=== PATIENT | male | born 1960 | race African-American/Black ===

== ENCOUNTER 2016-08-02 13:14 | Inpatient (IN) | payer OTHER ==
[~2016-08-02] VITALS: Ht 182.9 cm; Wt 100.0 kg
[2016-08-02] VITALS (16 sets, daily range): BP systolic 106–196; BP diastolic 60–110; PULSE 44–64; RESP 15–20; TEMP 97.7–98.5; O2SAT 92–100
[2016-08-02] MEDS ORDERED: TAMS0.4C4 PO (13:45)
[2016-08-02] MEDS ORDERED: OXYB5TAB10 PO (13:46)
--- NOTE | 2016-08-02 13:51 | PD ---
HPI Chief Complaint: Chest Pain Time Seen by Provider: 13:49 Travel History International Travel<30 days: No Contact w/Intl Traveler<30days: No Traveled to known affect area: No History of Present Illness HPI Patient comes in complaining of substernal chest pain described as a sharp heaviness ongoing for 2 days. Patient states he tried taking Tums and Pepto- Bismol thinking it may be gas with no improvement of his symptoms. Patient states his pain is getting worse. Patient states he had a heart attack in 2010 and had a catheter at that time however is uncertain if they put a stent in or not. Patient reports this was done in [place]. Patient states he had a stress test approximately year ago in [place] and was told everything was fine per patient. Patient denies any shortness of breath with this, numbness or tingling, vomiting, diaphoresis, back pain, or abdominal pain. Patient reports occasionally having some nausea with this along with some dizziness. PFSH Past Medical History Asthma: Yes Cardiovascular Problems: Yes High Cholesterol: Yes Tetanus Vaccination: > 5 Years Influenza Vaccination: Yes Social History Alcohol Use: Yes (occu) Tobacco Use: Yes (1 ppd) Substance Use: No Allergies-Medications (Allergen,Severity, Reaction): Coded Allergies: No Known Allergies (Unverified , 09/30/14) Reported Meds & Prescriptions Reported Meds & Active Scripts Active Reported Ditropan (Oxybutynin Chloride) 5 Mg Tab 5 Mg PO DAILY Tamsulosin (Tamsulosin HCl) 0.4 Mg Cap 0.4 Mg PO HS Review of Systems Except as stated in HPI: all other systems reviewed are Neg Physical Exam Narrative GENERAL: Well-developed, overly nourished, in no acute distress, and non-ill appearing. SKIN: Focused skin assessment warm and dry. HEAD: Atraumatic. Normocephalic. EYES: Pupils equal and round. EOMI. No scleral icterus. No injection or drainage. ENT: No nasal bleeding or discharge. Mucous membranes pink and moist. NECK: Trachea midline. No JVD. Supple. No nuclear rigidity. CARDIOVASCULAR: Regular rate and rhythm. No murmur appreciated. RESPIRATORY: No accessory muscle use. No respiratory distress. Clear to auscultation. Breath sounds equal bilaterally. MUSCULOSKELETAL: No obvious deformities. No clubbing. No cyanosis. No edema. Full range of motion. NEUROLOGICAL: Awake and alert. No obvious cranial nerve deficits. Motor grossly within normal limits. Normal speech. PSYCHIATRIC: Appropriate mood and affect; insight and judgment normal. Data Data Last Documented VS Vital Signs Date Time Temp Pulse Resp B/P Pulse Ox O2 Delivery O2 Flow Rate FiO2 08/02/16 13:38 56 16 161/97 98 Room Air 08/02/16 13:17 97.7 Orders Electrocardiogram (08/02/16 ) Basic Metabolic Panel (Bmp) (08/02/16 13:48) Ckmb (Isoenzyme) Profile (08/02/16 13:48) Complete Blood Count With Diff (08/02/16 13:48) Magnesium (Mg) (08/02/16 13:48) Prothrombin Time / Inr (Pt) (08/02/16 13:48) Act Partial Throm Time (Ptt) (08/02/16 13:48) Troponin I (08/02/16 13:48) Chest, Single Ap (08/02/16 13:48) Ecg Monitoring (08/02/16 13:48) Bilateral Bp Monitoring (08/02/16 13:48) Iv Access Insert/Monitor (08/02/16 13:48) Oximetry (08/02/16 13:48) Oxygen Administration (08/02/16 13:48) Aspirin Chew (Aspirin Chew) (08/02/16 14:00) Nitroglycerin 2% Oint (Nitroglycerin 2% (08/02/16 14:00) Sodium Chloride 0.9% Flush (Ns Flush) (08/02/16 14:00) Heparin Infusion CAESAR.Q1H (08/02/16 14:13) Heparin Inj (Heparin Inj) (08/02/16 20:15) Heparin Inj (Heparin Inj) (08/02/16 20:15) Heparin-D5w Inj (Heparin-D5w Inj) (08/02/16 14:15) Act Partial Throm Time (Ptt) (08/02/16 14:13) Prothrombin Time / Inr (Pt) (08/02/16 14:13) Cbc No Diff, Includes Plts (08/02/16 14:13) Cbc No Diff, Includes Plts (08/05/16 06:00) Act Partial Throm Time (Ptt) (08/02/16 21:13) Occult Blood (Hemoccult) Stool (08/02/16 14:13) Consult Cardiology (08/02/16 ) Admit Order (Ed Use Only) (08/02/16 14:22) CKMB (08/02/16 14:06) CKMB% (08/02/16 14:06) Labs Laboratory Tests Test 08/02/16 08/02/16 14:06 14:15 Sodium Level 139 MEQ/L Potassium Level 4.1 MEQ/L Chloride Level 104 MEQ/L Carbon Dioxide Level 28.1 MEQ/L Anion Gap 7 MEQ/L Blood Urea Nitrogen 17 MG/DL Creatinine 1.38 MG/DL Estimat Glomerular Filtration 65 ML/MIN Rate Random Glucose 98 MG/DL Calcium Level 9.4 MG/DL Magnesium Level 2.1 MG/DL Total Creatine Kinase 191 U/L Creatine Kinase MB 1.5 NG/ML Troponin I LESS THAN 0.02 NG/ML White Blood Count 5.6 TH/MM3 Red Blood Count 4.63 MIL/MM3 Hemoglobin 15.1 GM/DL Hematocrit 43.5 % Mean Corpuscular Volume 93.9 FL Mean Corpuscular Hemoglobin 32.5 PG Mean Corpuscular Hemoglobin 34.6 % Concent Red Cell Distribution Width 12.8 % Platelet Count 165 TH/MM3 Mean Platelet Volume 10.1 FL Neutrophils (%) (Auto) 56.0 % Lymphocytes (%) (Auto) 34.6 % Monocytes (%) (Auto) 7.2 % Eosinophils (%) (Auto) 1.5 % Basophils (%) (Auto) 0.7 % Neutrophils # (Auto) 3.1 TH/MM3 Lymphocytes # (Auto) 1.9 TH/MM3 Monocytes # (Auto) 0.4 TH/MM3 Eosinophils # (Auto) 0.1 TH/MM3 Basophils # (Auto) 0.0 TH/MM3 CBC Comment DIFF FINAL Differential Comment Prothrombin Time 10.7 SEC Prothromb Time International 1.0 RATIO Ratio Activated Partial 28.8 SEC Thromboplast Time MDM Medical Decision Making Medical Screen Exam Complete: Yes Emergency Medical Condition: Yes Interpretation(s) EKG reviewed by Dr. Whyte, which shows some ST changes with a ventricular rate of 57. Chest x-ray read by the radiologist shows: Trace left base atelectasis. Differential Diagnosis Acute coronary syndrome, angina, pneumonia, electrolyte abnormality, other Narrative Course Patient was seen and examined. IV was established. Patient given a dose of aspirin. Initial laboratory studies were ordered. EKG was obtained. After abnormal EKG Dr. Whyte spoke with Dr. Garnett who is managing patient to the Administrative Underwriter today. Patient was then admitted to the residents. Dr. Whyte discussed plan of care and disposition with patient is agreeable for admission. All questions were answered. Physician Communication Physician Communication 1412 Dr. Whyte discussed patient with Dr. Garnett result shows no STEMI but once patient started on heparin drip and will take him to the catheter lab later today. Requesting admission to medicine. 1420 discussed patient with residents online marketing strategist for agreeable to admit the patient for Dr. Fernandes. Diagnosis Primary Impression: Unstable angina Admitting Information Admitting Physician Requests: Admit Condition: Jeovanny Rivas Aug 02, 2016 13:51
[2016-08-02] MEDS ORDERED: SODIUM CHLORIDE 0.9% FLUSH 10 ML FLUSH IVF PRN (14:00)
[2016-08-02] MEDS ORDERED: ASPIRIN 81 MG CHEW TAB PO ONE (14:00)
[2016-08-02] MEDS ORDERED: NITROGLYCERIN 2% OINT 1 GM PACKET TOP ONE (14:00)
[2016-08-02] MEDS ORDERED: HEPARIN-D5W INJ 250 ML IV SCH (14:15)
--- NOTE | 2016-08-02 14:25 | RADRPT ---
EXAM DATE/TIME: 08/02/2016 13:51 [facility] COMPARISON: No previous studies available for comparison. INDICATIONS : Chest pain since wednesday. MEDICAL HISTORY : None. SURGICAL HISTORY : None. ENCOUNTER: Initial ACUITY: 3 days PAIN SCORE: 5/10 LOCATION: Bilateral chest FINDINGS: Trace left base atelectasis. Right lung clear. No pleural effusion or pneumothorax seen. Normal heart size. CONCLUSION: Trace left base atelectasis. Jn Gonzalez MD on August 02, 2016 at 14:22 Board Certified Radiologist. This report was verified electronically.
[2016-08-02 14:29] LABS: AUTOMATED NEUTROPHIL # 3.1 TH/MM3 (1.8-7.7); BASOPHIL % 0.7 % (0.0-2.0); EOSINOPHIL # 0.1 TH/MM3 (0-0.4); EOSINOPHIL % 1.5 % (0.0-4.0); HEMATOCRIT 43.5 % (39.0-51.0); HEMO FLAGS DIFF FINAL; LYMPH % 34.6 % (9.0-44.0); LYMPHOCYTE # 1.9 TH/MM3 (1.0-4.8); MEAN CELL VOLUME 93.9 FL (80.0-100.0); MEAN CORPUSCULAR HEMOGLOBIN 32.5 PG (27.0-34.0); MEAN CORPUSCULAR HGB CONC 34.6 % (32.0-36.0); MONO % 7.2 % (0.0-8.0); PLATELET COUNT 165 TH/MM3 (150-450); RED BLOOD COUNT 4.63 MIL/MM3 (4.50-5.90); RED CELL DISTRIBUTION WIDTH 12.8 % (11.6-17.2); WHITE BLOOD COUNT 5.6 TH/MM3 (4.0-11.0)
[2016-08-02] MEDS ORDERED: DOCUSATE SODIUM 100 MG CAP PO PRN (14:30)
[2016-08-02] MEDS ORDERED: ONDANSETRON HCL 4 MG/2 ML VIAL IV PRN (14:30)
[2016-08-02] MEDS: SODIUM CHLORIDE 0.9% FLUSH 10 ML FLUSH IV FLUSH SCH ×2 (14:30→21:04)
[2016-08-02] MEDS ORDERED: ACETAMINOPHEN 325 MG TAB PO PRN (14:30)
[2016-08-02] MEDS ORDERED: SODIUM CHLORIDE 0.9% FLUSH 10 ML FLUSH IV FLUSH PRN (14:30)
[2016-08-02] MEDS ORDERED: MORPHINE SULFATE 4 MG/ML INJ IV PRN (14:30)
[2016-08-02] MEDS ORDERED: NITROGLYCERIN 0.4 MG SL 25 TABS/BTL SL PRN (14:30)
[2016-08-02 14:35] LABS: ANION GAP 7 MEQ/L (5-15); BICARBONATE 28.1 MEQ/L (21.0-32.0); BLOOD UREA NITROGEN 17 MG/DL (7-18); CHLORIDE 104 MEQ/L (98-107); GLOMERULAR FILTRATION RATE 65 ML/MIN (>89); MAGNESIUM 2.1 MG/DL (1.5-2.5); POTASSIUM 4.1 MEQ/L (3.5-5.1); SODIUM (NA) 139 MEQ/L (136-145)
[2016-08-02 14:39] LABS: CREATINE KINASE 191 U/L (39-308)
[2016-08-02 14:40] LABS: APTT (PATIENT) 28.8 SEC (24.3-30.1); PROTHROMBIN TIME - PATIENT 10.7 SEC (9.8-11.6)
--- NOTE | 2016-08-02 14:43 | HHI.HP ---
[facility] Service Family Medicine Primary Care Physician Tien Driver MD Admission Diagnosis unstable angina Diagnoses: International Travel<30 Days: No Contact w/Intl Traveler<30days: No Known Affected Area: No History of Present Illness Mr. Watts is a 56 y/o M with a PMHx of BPH presents with chest pain. He states that since 07/31/16, he has had constant substernal, chest pain radiating up his neck. He describes this pain as a "tight pressure." The pain started at rest and has continued since Wednesday. This morning he noticed that the pain was worse with some dizziness. He tried Pepto-Bismol and Tums thinking the pain was related to reflux, however his pain was not relieved and he decided to present to the emergency department for further evaluation. Currently his pain is at a 5 /10 with radiation up his neck with mild nausea. He has a history of heart related issues and was catheterized in 2010, but is unsure whether or not stents were placed. He currently sees a cartridge loader in the [place] area, but does not know the physician's name. He has completed a stress test within the year and was told that "everything was normal." He reports no known cardiac medications, however his reports that he does take a "pink pill and small white pill" that could be cardiac medications. Otherwise he has no complaints and denies any fevers, chills, shortness of breath, abdominal pain, and calf tenderness. He reports his last meal was this morning at approximately 0900. ( Barney Parson MD R1) Review of Systems Constitutional: DENIES: Fever, Chills Eyes: DENIES: Blurred vision Ears, nose, mouth, throat: DENIES: Hearing loss Respiratory: DENIES: Cough, Shortness of breath Cardiovascular: COMPLAINS OF: Chest pain, DENIES: Palpitations, Lower Extremity Edema Gastrointestinal: DENIES: Abdominal pain, Diarrhea, Nausea, Vomiting Genitourinary: DENIES: Dysuria Musculoskeletal: DENIES: Joint pain Integumentary: DENIES: Rash Hematologic/lymphatic: DENIES: Lymphadenopathy Neurologic: DENIES: Headache Psychiatric: DENIES: Mood changes (Barney Parson MD R1) Past Family Social History Past Medical History Asthma Allergies BPH Past Surgical History Heart catheterization in 2010 (Barney Parson MD R1) Allergies: Coded Allergies: No Known Allergies (Unverified , 09/30/14) Family History Mother - Healthy Father - Healthy Grandfather - heart problems Reports no other FMHx Social History Patient is from [place]. 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 Smoke - 1 pack per day for 47 years Alcohol - last drink was 4 weeks ago, stopped due to medication, prior history of heavy drinking Illicit - Denies illicit drug history (Barney Parson MD R1) Physical Exam Vital Signs Vital Signs Date Time Temp Pulse Resp B/P Pulse Ox O2 Delivery O2 Flow Rate FiO2 08/02/16 13:38 56 16 161/97 98 Room Air 08/02/16 13:17 97.7 52 15 179/96 100 Physical Exam GENERAL: 56-year-old male lying in bed in mild distress with chest pain at 5/10. SKIN: Warm and dry. No rash. HEENT: Atraumatic, normocephalic with EOMI. PERRLA. No scleral icterus. Oropharynx clear with no erythema or exudate. MMM. No rhinorrhea. No LAD or JVD appreciated. CARDIOVASCULAR: Regular rate and rhythm without obvious murmurs, gallops, or rubs. 2+ pulses in all extremities. RESPIRATORY: Clear to auscultation bilaterally with no CRW. No increased work of breathing. GASTROINTESTINAL: Abdomen soft, non-tender, nondistended with positive bowel sounds. No masses or hepatosplenomegaly appreciated. MUSCULOSKELETAL: No cyanosis or edema. Strength grossly WNL. BACK: Nontender without obvious deformity. No CVA tenderness. NEURO/PSYCH: Afocal. Awake, alert, and oriented x3. No gross abnormalities. Normal speech and interaction with examiner. Laboratory Laboratory Tests Test 08/02/16 08/02/16 14:06 14:15 Sodium Level 139 Potassium Level 4.1 Chloride Level 104 Carbon Dioxide Level 28.1 Anion Gap 7 Blood Urea Nitrogen 17 Creatinine 1.38 Estimat Glomerular Filtration 65 Rate Random Glucose 98 Calcium Level 9.4 Magnesium Level 2.1 Total Creatine Kinase 191 Troponin I LESS THAN 0.02 White Blood Count 5.6 Red Blood Count 4.63 Hemoglobin 15.1 Hematocrit 43.5 Mean Corpuscular Volume 93.9 Mean Corpuscular Hemoglobin 32.5 Mean Corpuscular Hemoglobin 34.6 Concent Red Cell Distribution Width 12.8 Platelet Count 165 Mean Platelet Volume 10.1 Neutrophils (%) (Auto) 56.0 Lymphocytes (%) (Auto) 34.6 Monocytes (%) (Auto) 7.2 Eosinophils (%) (Auto) 1.5 Basophils (%) (Auto) 0.7 Neutrophils # (Auto) 3.1 Lymphocytes # (Auto) 1.9 Monocytes # (Auto) 0.4 Eosinophils # (Auto) 0.1 Basophils # (Auto) 0.0 CBC Comment DIFF FINAL Differential Comment Prothrombin Time 10.7 Prothromb Time International 1.0 Ratio Activated Partial 28.8 Thromboplast Time (Barney Parson MD R1) Result Diagram: 08/02/16 1415 08/02/16 1406 Imaging Last 72 hours Impressions Chest X-Ray 08/02/16 1348 Signed Impressions: Service Date/Time: Tuesday, August 02, 2016 13:51 - CONCLUSION: Trace left base atelectasis. Jn Gonzalez MD (Barney Parson MD R1) Assessment and Plan Assessment and Plan Mr. Watts is a 56 y/o M with a PMHx of BPH presents with chest pain likely due to unstable angina. Patient will be admitted and taken to for heart catheterization by Dr. Garnett, per ER staff. Code Status FULL Discussed Condition With Jose Allen, ELYSE PA Dr. Dom Schreiber (Barney Parson MD R1) Attending Attestation Patient seen and examined. Case reviewed and discussed with the resident team. Agree with plan of care as discussed with me and documented in the resident note. (Marion Fernandes MD) Problem List: (1) Unstable angina Status: Acute Plan: Patient presenting with 3 days of unstable angina. Chest x-ray: Trace left base atelectasis EKG: Bradycardic in normal sinus rhythm with nonspecific ST changes per medical team read. CBC: Within normal limits BMP: Creatinine 1.38 Troponin less than 0.02, trend every 6 hours 2 with EKG Lipid panel: Pending BNP: Pending TSH: Pending Consult cardiology, pressure recommendations Per ER staff, cardiology plans to take patient for cardiac catheterization later this afternoon Cardiac telemetry Pulse oximetry with nasal cannula when necessary Medications: Heparin drip per protocol initiated in ER Atorvastatin 40 mg daily at bedtime Aspirin daily Nitroglycerin 0.4 mg sublingual every 5 minutes when necessary chest pain Morphine 2 mg every 30 minutes when necessary for chest pain (2) BPH (benign prostatic hyperplasia) Status: Acute Plan: Patient with reported BPH. -Continue home Oxybutynin and Tamsulosin (3) Nutrition, metabolism, and development symptoms Status: Acute Plan: Diet: NPO for catheterization, heart healthy post-procedure as tolerated Fluids: Tolerating PO fluids prior to presentation, does not appear dehydrated Electrolytes: WNL, continue to monitor Prophylaxis: Zofran when necessary for nausea or vomiting, Anastacia-Colace when necessary for constipation, Tylenol when necessary for headache or fever, DuoNeb 's when necessary for shortness of breath or wheezing, clotting when necessary for BP greater than 180/100 (4) No contraindication to deep vein thrombosis (DVT) prophylaxis Status: Acute Plan: -Heparin drip order in preparation for catheterization procedure. -CHARLIE/SCDS (Barney Parson MD R1) Physician Certification 2 Midnight Certification Type: Admission for Inpatient Services Order for Inpatient Services The services are ordered in accordance with Medicare regulations or non- Medicare payer requirements, as applicable. In the case of services not specified as inpatient-only, they are appropriately provided as inpatient services in accordance with the 2-midnight benchmark. Estimated LOS (days): 3 3 days is the estimated time the patient will need to remain in the hospital, assuming treatment plan goals are met and no additional complications. Post-Hospital Plan: Home (Barney Parson MD R1) Barney Parson MD R1 Aug 02, 2016 14:43 Marion Fernandes MD Aug 03, 2016 11:44
[2016-08-02 14:51] LABS: CKMB 1.5 NG/ML (0.5-3.6)
[2016-08-02] MEDS ORDERED: HEPARIN-NS/PF INJ 500 ML ONE (14:56)
[2016-08-02] MEDS ORDERED: IOHEXOL 350 MG/ML 100 ML BTL (for Cath Lab) OTHER ONE (15:16)
[2016-08-02] MEDS ORDERED: MIDAZOLAM HCL 5 MG/5 ML VIAL ONE (15:24)
[2016-08-02] MEDS ORDERED: HEPARIN SODIUM - IV 10,000 UNITS/10 ML VIAL ONE (15:26)
[2016-08-02] MEDS ORDERED: VERAPAMIL HCL 5 MG/2 ML VIAL ONE (15:26)
--- NOTE | 2016-08-02 15:34 | HHI.FPPN ---
Subjective Remarks Patient was seen, examined and discussed with the medicine team. This is a 56-year-old male from [place] who presented this morning with central chest pain. It started on Wednesday and he thought was indigestion, tried Tums and Pepto-Bismol without much relief. Because the discomfort persisted, he presented to the emergency department. The pain in his central chest area does go to his neck but otherwise it's fairly constant, 5 of 10. He did not have any shortness of breath with this, did not sweat, did not have arm or jaw pain. Reports having had a heart catheter in 2010 in [place], uncertain if he had stents placed. He has a local doctor in the [facility] and a section hand helper as well. Continues to smoke a pack a day and was a heavy alcohol drinker until approximately 4 weeks ago. He takes oxybutynin and tamsulosin. He and report a small pink pill and a small white pill but they do not know what they are for. Please see history and physical examination for additional historical details including past, family, social history and review of systems. He understands that he is going to have heart catheterization today. Objective Vitals Vital Signs Date Time Temp Pulse Resp B/P Pulse Ox O2 Delivery O2 Flow Rate FiO2 08/02/16 15:16 54 159/110 08/02/16 14:53 100 2 08/02/16 14:53 61 16 182/104 98 Nasal Cannula 2 08/02/16 14:53 64 16 196/105 96 Nasal Cannula 08/02/16 13:38 56 16 161/97 98 Room Air 08/02/16 13:35 55 18 161/97 08/02/16 13:17 97.7 52 15 179/96 100 Result Diagram: 08/02/16 1415 08/02/16 1406 Other Results EKG shows ST elevation in V2. Laboratory Tests Test 08/02/16 14:06 Creatinine 1.38 MG/DL Estimat Glomerular Filtration 65 ML/MIN Rate Troponin I LESS THAN 0.02 NG/ML Imaging Last Impressions Chest X-Ray 08/02/16 1348 Signed Impressions: Service Date/Time: Tuesday, August 02, 2016 13:51 - CONCLUSION: Trace left base atelectasis. Jn Gonzalez MD Objective Remarks O. CONSTITUTIONAL/GEN: normally nourished, in some distress with central chest pain 5 out of 10. EYES: conjunctiva normal, PERRLA, EOMI. sclerae are muddy ENT: Mouth and pharynx normal. NECK: Nontender, supple LUNGS: clear A-P, respiratory effort is normal. CARDIOVASCULAR: RR without murmur or gallop. No significant edema. GI/ABD: soft without masses, without organomegaly. Active bowel sounds : no CVA tenderness NEURO: No focal deficits. SKIN: color normal, no rashes noted. HEME/LYMPH: no bruising, petechia or significant adenopathy MUSC: back is normal in appearance. Extremities are normal in appearance. PSYCH/MENTAL STATUS: Alert and oriented x 3. A/P Assessment and Plan 56-year-old male with chest pain, history of heart catheter 6 years ago, unknown whether he had stents, smoker and recent heavy drinker. Attending Attestation Patient seen and examined. Case reviewed and discussed with the resident team. Agree with plan of care as discussed with me and documented in the resident note. Marion Fernandes MD Aug 02, 2016 15:34
--- NOTE | 2016-08-02 17:48 | MB ---
cc: CHRISTOPHER LOMELI DATE OF CONSULTATION: 08/02/2016. REASON FOR CONSULTATION: Chest pain. HISTORY OF PRESENT ILLNESS: 56-year-old male with a past medical history significant for coronary artery disease who presented to the hospital with chest pain for the last two days that has been getting worse. He reports he was recently in [place] where he had an episode of faintness. He passed out. He is also complaining of chest pain. He actually went to the hospital. He was seen in [place] and he was evaluated by cardiology; however, he is not able to remember what exactly what kind of workup they did in [place]. He does state that he had a stress test a long time ago which was unremarkable. Unfortunately the patient is a poor historian and does not remember the details of his past medical history. He complains of substernal chest pressure that is ongoing and associated with belching. EKG in the emergency department shows a normal sinus rhythm with nonspecific S-T changes. First set of cardiac markers negative. He denies fevers, chills, nausea, vomiting, diarrhea, shortness of breath or bleeding issues. REVIEW OF SYSTEMS: Negative except for that mentioned in the history of present illness. PAST MEDICAL HISTORY: 1. Asthma. 2. Coronary artery disease. 3. Hyperlipidemia. 4. Hypertension. SOCIAL HISTORY: Smoker. He does not use illicit drugs. He occasionally drinks alcohol. ALLERGIES: NO KNOWN DRUG ALLERGIES. CARDIAC MEDICATIONS AT HOME: None. PHYSICAL EXAMINATION: VITAL SIGNS: Temperature 97, pulse 56, blood pressure 179/96, 02 saturation 100 % on room air. GENERAL: He is awake, alert and oriented times three in no acute distress. HEAD, EYES, EARS, NOSE, THROAT/NECK: The patient has no jugular venous distention. No carotid bruits. HEART: Regular rate and rhythm. There are no murmurs, rubs or gallops. LUNGS: Clear to auscultation bilaterally. No wheezing. No rales. No rhonchi. ABDOMEN: The abdomen is soft, nontender and nondistended with positive bowel sounds. EXTREMITIES: There is no cyanosis or edema. Pulses bounding throughout. DATA: CBC: Hemoglobin 15, hematocrit 43, platelet count 165,000. INR 1. Chemistries: Sodium 139, potassium 4.1, BUN 17, creatinine 1.3. First set of cardiac enzymes: Troponin less than 0.02. Chest x-ray shows no acute cardiopulmonary process. EKG shows normal sinus rhythm with nonspecific S-T changes. ASSESSMENT AND PLAN: 56-year-old male with cardiac risk factors that include hypertension, active smoker who presented with ongoing chest discomfort with exertion for the last two days concerning for unstable angina. He remains afebrile and hemodynamically stable, however he still has ongoing chest pressure. In the emergency department he was given oxygen, nitroglycerin and heparin. He was started on heparin drip. I think at this point given the patient's ongoing chest discomfort, we should take him to the slab conditioner supervisor to assess his coronary anatomy. The risks and benefits of left heart cath / percutaneous coronary intervention including but not limited to bleeding, infection, acute kidney injury, neurovascular trauma, emergent bypass surgery and have been explained to the patient. The patient understands the risks and is willing to proceed. Thank you for the opportunity to take part in the care of this patient Further therapy to be determined. MD NATASHA Paez/JCC /3:05 PM /5:43 PM ALLAN
--- NOTE | 2016-08-02 18:14 | MA ---
cc: CHRISTOPHER LOMELI DATE: 08/02/2016. PROCEDURE PERFORMED: 1. Left heart catheterization. 2. Selective right and left coronary angiography. 3. Left ventriculogram. INDICATIONS FOR THE PROCEDURE: Angina. Unstable angina. DESCRIPTION OF THE PROCEDURE: Consent signed. The patient was taken to the cardiac medical laboratory assistant in a fasting state. The right wrist was prepped and draped in a sterile fashion. Using 1% lidocaine for local anesthesia and a micropuncture kit, a 6-Solomon Islander sheath was inserted into the right radial artery. Antispasmodic cocktail given and then selective right and left coronary angiography was performed with a JR-4 and a JL -3.5 diagnostic catheters. Angiography was taken in multiple views. The left ventricle was crossed with a JR-4 diagnostic catheter over a wire introduced followed by pressure recordings, left ventriculography and pullback. All catheters were exchanged over the wire. The patient tolerated the procedure without complications. Estimated blood loss was less than 30 mL. Total contrast used 70 mL. The right wrist access site was closed with a TR band. RESULTS: Left ventricle: The left ventricular pressure was 133/12 with an left ventricular end diastolic pressure of 7. The aortic pressure was 134/82 with a mean of 106. Left ventriculography revealed a symmetrically debbie ventricle with an estimated ejection fraction of 60%. ANGIOGRAPHY: 1. Right coronary artery: The right coronary artery is dominant, tortuous with HAI III flow and no obstructive coronary artery disease. The posterior descending artery is patent with no blockages. There is a PLV branch that has a 40% lesion distally. 2. Left main is patent with HAI III flow. 3. left anterior descending is a transapical vessel and has minimal luminal irregularities throughout. It has a first diagonal of a prominent size. This diagonal bifurcates distally. It has minimal irregularities however, no significant obstructive lesions 4. The left circumflex artery is mainly a prominent OM1 vessel that has minimal irregularities and 20% lesion proximally and also several side branches which are small and there is also a small AV groove segment of the left circumflex. CONCLUSIONS: 1. Nonobstructive coronary artery disease. 2. Preserved left ventricular systolic function. 3. Normal diastolic function. RECOMMENDATIONS: Continue aggressive medical management for primary prevention of coronary artery disease. MD NATASHA Paez/TITI /3:49 PM /6:11 PM [facility]
[2016-08-02] MEDS ORDERED: RESP: ALBUTEROL 2.5 MG/IPRATROPIUM 0.5 MG NEB (PRN) NEB (18:45)
[2016-08-02] MEDS ORDERED: cloNIDine HCL 0.1 MG TAB PO PRN (18:45)
[2016-08-02] MEDS ORDERED: HEPARIN SODIUM - IV 10,000 UNITS/10 ML VIAL IV PRN ×2 (20:15)
[2016-08-02] MEDS ORDERED: TAMSULOSIN HCL 0.4 MG CAP PO SCH (21:00)
[2016-08-02] MEDS ORDERED: ATORVASTATIN 40 MG TAB PO SCH (21:00)
[2016-08-02 21:50] LABS: APTT (PATIENT) 29.8 SEC (24.3-30.1)
[2016-08-02 21:57] LABS: ALT (GPT) 23 U/L (12-78); AST (GOT) 11 U/L (15-37)
[2016-08-02 22:06] LABS: ALKALINE PHOSPHATASE 68 U/L (45-117); CREATINE KINASE 145 U/L (39-308); INDIRECT BILIRUBIN 0.4 MG/DL (0.0-0.8); TOTAL BILIRUBIN ADULT 0.6 MG/DL (0.2-1.0)
[2016-08-02 22:19] LABS: CKMB 0.9 NG/ML (0.5-3.6)
[2016-08-03] VITALS (11 sets, daily range): BP systolic 114–146; BP diastolic 71–86; PULSE 48–58; RESP 16; TEMP 98.4; O2SAT 96–97
[2016-08-03 02:22] LABS: AUTOMATED NEUTROPHIL # 3.4 TH/MM3 (1.8-7.7); BASOPHIL % 0.6 % (0.0-2.0); EOSINOPHIL # 0.1 TH/MM3 (0-0.4); EOSINOPHIL % 1.6 % (0.0-4.0); HEMATOCRIT 41.3 % (39.0-51.0); HEMO FLAGS DIFF FINAL; LYMPH % 33.7 % (9.0-44.0); MEAN CELL VOLUME 94.4 FL (80.0-100.0); MEAN CORPUSCULAR HEMOGLOBIN 32.4 PG (27.0-34.0); MEAN CORPUSCULAR HGB CONC 34.3 % (32.0-36.0); NEUT % 56.1 % (16.0-70.0); PLATELET COUNT 150 TH/MM3 (150-450); RED BLOOD COUNT 4.38 MIL/MM3 (4.50-5.90); RED CELL DISTRIBUTION WIDTH 13.1 % (11.6-17.2)
[2016-08-03 02:37] LABS: ANION GAP 4 MEQ/L (5-15); BICARBONATE 33.4 MEQ/L (21.0-32.0); BLOOD UREA NITROGEN 16 MG/DL (7-18); CHLORIDE 104 MEQ/L (98-107); POTASSIUM 3.9 MEQ/L (3.5-5.1); SODIUM (NA) 141 MEQ/L (136-145)
[2016-08-03 02:41] LABS: CREATINE KINASE 138 U/L (39-308); GLOMERULAR FILTRATION RATE 75 ML/MIN (>89); LDL CHOLESTEROL 96 MG/DL (0-99)
[2016-08-03 02:54] LABS: CKMB 1.1 NG/ML (0.5-3.6)
--- NOTE | 2016-08-03 07:43 | CATHPROC ---
[employer] HIS Report Study Information Study Number Scheduled Start Study Start [id number] 08/02/2016 Aug 02 2016 2:51PM Referring Institution Admit Source Facility Department 1 Emergency department [facility] - [employer] Machine Operator Physician and Clinical Staff Initial Mandeep Lopez Door HangerLeonard Kaur,RN Door Hanger Zainab Luque,RN/BA Other cathlab, cathlab Recorder Ruth Ann Atkins,CHIEF LENDING OFFICER TECH2 Scrub HostNikko mcallister,RT(R) Procedures Performed Procedure Location (Site) Vessel Name Coronary Angiograms LCA Left Coronary Coronary Angiograms RCA Right Coronary L Heart Cath LV Gram-hand inj. LV LV Ventricle Equipment Time Elementary Art Teacher Description Size Mfg Part Number Used/Scraped TRANSDUCER, TRUWAVE [id number] 14:54 MOORE CHEN * Used W/STOCKCOCK *[id number] [id number] *[id number] [id number] *[id number] 14:54 [employer] PACK, CCL CUSTOM * Used *[id number] 14:54 [employer] SUPPORT, ARTERIAL ADULT 40208 Used BAND, RADIAL COMPRESSION TR [id number] 15:41 [employer] MEDICAL 24CM Used SHORT 24 *[id number] 14:54 [employer] WIRE, 3MMJ .035 180CM 180CM Used *[id number] 14:54 NAMIC MANIFOLD, 4 PORT * Used *[id number] 14:54 [employer] OMNIPAQUE, 350 MG, 150ML 150ML [id number] Used [id number] 14:54 [employer] MEDICAL BLANKET,WARM AIR CCL * Used *[id number] SHEATH, FR6 TRANSRADIAL 14:54 Basic6 FR 6 [id number] Used SLENDER 10CM History: Allergies Allergy Reaction No Known Allergies History: Risk Factors Family History of Hypertension Dyslipidemia Previous PA Previous Heart Failure Premature CAD No Yes No No No Prior Valve Prior PCI Prior CABG Surgery No No No Cerebrovascular Peripheral Artery Chronic Lung On Dialysis Diabetes Disease Disease Disease No No No No No History: Symptoms/Diagnosis Selection Items Angina-unstable History: Stress Tests Stress or Imaging Studies Performed No History: Other Current Smoker No Labs Hgb (g/dl) Hct (%) RBC (MIL/MM3) WBC (l/cumm) 12.00-18.00 37.00-55.00 4.80-6.20 4.80-10.80 15.1 43.5 4.6 5.6 Glucose (mg/dl) BUN (mg/dl) Creatinine (mg/dl) BUN:Creatinine (1:x) 60.00-110.00 8.00-20.00 0.10-9.00 10.00-20.00 98 17 1.3 13.1 Na (meq/l) K (meq/l) Cl (meq/l) CO2 (mmol/L) Ca (mg/dl) 138.00-146.00 3.80-5.10 101.00-111.00 23.00-30.00 9.00-10.50 139 4.1 104 28.1 9.4 PT (sec) PTT (sec) INR (PTT:PT) 9.40-11.40 25.10-32.70 0.50-2.00 10.7 28.8 1 Medication Medication Total Dose (Bolus/Oral) Medication Total Dosage/Unit FENTANYL 50 mcg RADIAL COCKTAIL 5 mL (Bolus) VERSED 2 mg Medications (Bolus/Oral) Medication Time Given Dosage/Unit Administered By Reason VERSED 08/02/2016 3:30:35 PM 2 mg Leonard Joseph 2 mg VERSED given in lab by Leonard Joseph RN via Peripheral IV. Ordered by Mandeep Babb. FENTANYL 08/02/2016 3:30:37 PM 50 mcg Leonard Joseph 50 mcg FENTANYL given in lab by Leonard Joseph RN via Peripheral IV. Ordered by Mandeep Babb. Ntg 200mcg Verapamil 2.5mg Heparin RADIAL COCKTAIL 08/02/2016 3:32:19 PM 5 mL (Bolus) Mandeep Babb 2500U 5 mL (Bolus) RADIAL COCKTAIL given in lab by Mandeep Babb via Radial. Using [Solution Name]. Ord ered by Mandeep Babb. Reason: Ntg 200mcg Verapamil 2.5mg Heparin 2500U. Medication (Drip) Medication Time Given Dosage/Unit Concentration/Unit Diluent (ml) Solution IV Solutions 08/02/2016 3:22:03 PM 0 mL (IV) 500 NaCl .9 IV Solutions given in lab by Leonard Joseph, VINCE via Peripheral IV. Pump/Drip Flow = 20 ml/hr using Na Cl .9. Ordered by Mandeep Babb. LEFT IJ Initial Case Assessment Cardiovascular HR NIBP 54 184/31 Edema Present Skin color Skin None Normal Warm Dry Circulatory - Right Pulses Dorsalis Pedis Femoral Radial 3 3 3 Scale (0,1,2,3,4,d) Circulatory - Left Pulses Dorsalis Pedis Femoral Radial 3 3 Scale (0,1,2,3,4,d) Neurological State Oriented to time-place- Alert Moves all extremities person Respiration - General Respiration Rate SpO2 (%) (B/min) 15 100 Final Case Assessment Cardiovascular HR NIBP 71 143/77 Edema Present Skin color Skin None Normal Warm Dry Circulatory - Right Pulses Dorsalis Pedis Femoral Radial 3 3 3 Scale (0,1,2,3,4,d) Circulatory - Left Pulses Dorsalis Pedis Femoral Radial 3 3 Scale (0,1,2,3,4,d) Neurological State Oriented to time-place- Alert Moves all extremities person Respiration - General Respiration Rate SpO2 (%) (B/min) 15 97 Chronological Log Time Study Chronological Log 15:15:41 Patient arrived via Bed. 15:21:45 Patient Name, D.O.B, / Armband Verified By R.N. 15:21:46 Consent signed by the physician and the patient and verified by the Band [employer] Machine Operator staff. Vitals capture started with the following parameters, Patient=Adult, Interval=5 min, Initial Pr zvevvm=814 mmHg, 15:21:48 Deflation Rate=5 mmHg 15:21:49 Pre-op and post- op instructions given; patient acknowledges understanding of instructions. 15:21:51 Allens test performed on the right radial and ulnar artery. 15:21:54 Patient has been NPO for More than 6Hrs. 15:21:55 NO Skin Breakdown- 15:21:58 Patient Warmer Placed on the Table. 15:21:59 Donaldo Prominences Protected 15:22:02 A # 20 IV was noted in the Jugular Vein (left). Grade = 0 IV Solutions given in lab by Leonard Joseph, VINCE via Peripheral IV. Pump/Drip Flow = 20 ml/hr us ing NaCl .9. Ordered by 15:22:03 Mandeep Babb. LEFT IJ 15:22:04 History and physical on the chart or being dictated. 15:24:06 HR=52 bpm, ROJC=328/31 mmhg, QyQ1=195 %, Resp=15 B/min, Pain=4, Rl=10, Valle=2 Assessment: Initial Case, HR=54 BPM, IWBT=038/31 mmhg, Edema=None, Color=Normal, Skin = Warm, D ry Right Pulses: Pelon Ped=3, Femoral=3, Radial=3 15:24:11 Left Pulses: Pelon Ped=3, Femoral=3 Neurological: State=Alert, Ox3, GARCIA Respiration: Resp=15 B/min, SsG5=639 % 15:26:24 Right Radial and right groin prepped with 2% chlorhexidine, and with a 3 min. waiting time. 15:27:29 Reference ECG taken 15::35 HR=50 bpm, PURF=273/102 mmhg, AhN0=090 %, Resp=17 B/min, Pain=4, Rl=10, Valle=2 15:30:12 Pressure channel 1 zeroed. Time Out. Correct patient, correct procedure,correct physician, ,power injector not loaded with contrast with surgical 15:30:15 team present. Time Out Concurred by MD, individual staff in procedure 15:30:33 Case Start 15:30:35 2 mg VERSED given in lab by Leonard Joseph, VINCE via Peripheral IV. Ordered by Massimo Babb. 15:30:37 50 mcg FENTANYL given in lab by Leonard Joseph, VINCE via Peripheral IV. Ordered by Mandeep Babb. 15:32:15 Access site was Radial Artery. A SHEATH, FR6 TRANSRADIAL SLENDER 10CM FR 6 was advanced into the Radial (right) using the Agn fied Seldinger 15:32:16 technique. 5 mL (Bolus) RADIAL COCKTAIL given in lab by Mandeep Babb via Radial. Using [Solution Name ]. Ordered by Wicho 15:32:19 Mandeep Cruz. Reason: Ntg 200mcg Verapamil 2.5mg Heparin 2500U. A JR 4.0 INFINITI CATHETER FR 5 was advanced over a wire. OMNIPAQUE, 350 MG, 150ML 150ML was us ed for 15:32:20 injections. 15:32:32 HR=60 bpm, SZKJ=718/90 mmhg, SpO2=95.0 %, Resp=15 B/min, Pain=4, Rl=10, Valle=2 Recorded Pressure: LV, HR=66, Condition=Condition 1 15:33:18 (Left Ventricle) LV 137/6/14 Recorded Pressure: LV, Ao, HR=83, Condition=Condition 1 15:33:52 (Left Ventricle) LV 133/12/7, (Aorta) Ao 130/81/103 15:34:47 The LV was manually injected with 10 cc's and visualized. OMNIPAQUE, 350 MG, 150ML 150ML us ed. 15:34:55 The RCA was injected and visualized at various angles. OMNIPAQUE, 350 MG, 150ML 150ML used . 15:35:09 Catheter was removed A JL 3.5 INFINITI CATHETER FR 5 was advanced over a wire. OMNIPAQUE, 350 MG, 150ML 150ML was us ed for 15:35:20 injections. 15:36:53 The LCA was injected and visualized at various angles. OMNIPAQUE, 350 MG, 150ML 150ML used . Recorded Pressure: Ao, HR=74, Condition=Condition 1 15:36:57 (Aorta) Ao 134/82/106 15:37:15 Catheter was removed 15:37:31 HR=71 bpm, DQFY=477/77 mmhg, SpO2=97.0 %, Resp=15 B/min, Pain=4, Rl=10, Valle=2 15:39:11 Case End 15:40:27 Catheter(s) removed without difficulty Radial Compression Device Used. 13 mLs of air placed in BAND, RADIAL COMPRESSION TR SHORT 24 24 CM. Affected 15:40:30 hand 98 % O2 saturation. Assessment: Final Case, HR=71 BPM, VKAQ=381/77 mmhg, Edema=None, Color=Normal, Skin = Warm, Dry Right Pulses: Pelon Ped=3, Femoral=3, Radial=3 15:41:28 Left Pulses: Pelon Ped=3, Femoral=3 Neurological: State=Alert, Ox3, GARCIA Respiration: Resp=15 B/min, SpO2=97 % 15:41:45 Vitals capture stopped. 15:42:35 No case complications noted. 15:42:36 Cine recording checked. 15:42:39 Bedside Report will be given. 15:42:43 Contrast Scanned 15:42:52 A Left Heart Cath was performed. 15:42:55 Patient moved to stretcher End Study - Contrast Media Used In Study Contrast Total Opened (mL) Total Used (mL) Total Wasted (mL) Omnipaque 40 40 0 End Study - Maximum Contrast Load Max Contrast Load (mL) 384.6 End Study - Radiation Exposure Fluoro Time (minutes) 2.8 End Study - Patient Disposition Complications Transferred To Telemetry Bed
[2016-08-03] MEDS ORDERED: OXYBUTYNIN CHLORIDE 5 MG TAB PO SCH (09:00)
[2016-08-03] MEDS ORDERED: ASPIRIN 81 MG CHEW TAB CHEW SCH (09:00)
--- NOTE | 2016-08-03 09:26 | HHI.FPPN ---
Subjective Remarks No acute events. No chest pain overnight. No shortness of breath. Sitting up in bed and comfortable. Doing much better than yesterday. (Zachary Schreiber MD R2) Objective Vitals Vital Signs Date Time Temp Pulse Resp B/P Pulse Ox O2 Delivery O2 Flow Rate FiO2 08/03/16 07:52 98.4 49 16 122/78 96 08/03/16 07:52 49 08/03/16 06:00 54 08/03/16 05:00 49 08/03/16 04:00 48 08/03/16 03:30 98.4 54 16 114/71 97 08/03/16 03:00 56 08/03/16 02:00 58 08/03/16 01:00 52 08/03/16 00:00 52 08/02/16 23:41 92 08/02/16 23:00 98.5 50 16 106/60 95 08/02/16 23:00 54 08/02/16 22:00 52 08/02/16 21:00 50 08/02/16 20:00 98.5 50 16 146/83 96 08/02/16 20:00 52 08/02/16 19:00 58 08/02/16 18:00 49 08/02/16 17:00 44 08/02/16 16:40 97.9 49 20 144/86 98 08/02/16 16:06 54 16 159/110 08/02/16 16:00 49 08/02/16 15:16 54 159/110 08/02/16 14:53 100 2 08/02/16 14:53 61 16 182/104 98 Nasal Cannula 2 08/02/16 14:53 64 16 196/105 96 Nasal Cannula 08/02/16 13:38 56 16 161/97 98 Room Air 08/02/16 13:35 55 18 161/97 08/02/16 13:17 97.7 52 15 179/96 100 I/O 08/02/16 08/02/16 08/02/16 08/03/16 08/03/16 08/03/16 07:00 15:00 23:00 07:00 15:00 23:00 Intake Total 480 ml 240 ml Output Total 450 ml 850 ml Balance 30 ml -610 ml Intake Oral 480 ml 240 ml Output Urine Total 450 ml 850 ml # Bowel Movements 0 0 (Zachary Schreiber MD R2) Result Diagram: 08/03/16 0148 08/03/16 0148 Imaging Last 72 hours Impressions Chest X-Ray 08/02/16 1348 Signed Impressions: Service Date/Time: Tuesday, August 02, 2016 13:51 - CONCLUSION: Trace left base atelectasis. Jn Gonzalez MD Objective Remarks O. CONSTITUTIONAL/GEN: normally nourished, chest pain resolved, sitting up in bed and comfortable EYES: conjunctiva normal, PERRLA, EOMI. ENT: Mouth and pharynx normal. NECK: Nontender, supple LUNGS: clear A-P, respiratory effort is normal. CARDIOVASCULAR: RR without murmur or gallop. No significant edema. GI/ABD: soft without masses, without organomegaly. Active bowel sounds : no CVA tenderness NEURO: No focal deficits. SKIN: color normal, no rashes noted. HEME/LYMPH: no bruising, petechia or significant adenopathy MUSC: back is normal in appearance. Extremities are normal in appearance. PSYCH/MENTAL STATUS: Alert and oriented x 3. (Zachary Schreiber MD R2) A/P Assessment and Plan Mr. Watts is a 56 y/o M with a PMHx of BPH presents with chest pain likely due to unstable angina. Catheterization showing non-obstruction coronary artery disease. (Zachary Schreiber MD R2) Attending Attestation Patient seen and examined. Case reviewed and discussed with the resident team. Agree with plan of care as discussed with me and documented in the resident note. (Marion Fernandes MD) Problem List: (1) Unstable angina Status: Acute Plan: Patient presenting with 3 days of unstable angina. Chest x-ray: Trace left base atelectasis EKG: Bradycardic in normal sinus rhythm with nonspecific ST changes per medical team read. Troponins normal Lipid panel: LDL 96, HDL 36, total cholesterol 153 - Cardiac cath: non-obstructive coronary artery disease Consulted cardiology Cardiac telemetry Pulse oximetry with nasal cannula when necessary Medications: Heparin drip per protocol initiated in ER Atorvastatin 40 mg daily at bedtime Aspirin daily Nitroglycerin 0.4 mg sublingual every 5 minutes when necessary chest pain Morphine 2 mg every 30 minutes when necessary for chest pain - Extension discussion about quitting smoking - Healthy diet, exercise - Await cardiology recommendations (2) BPH (benign prostatic hyperplasia) Status: Acute Plan: Patient with reported BPH. -Continue home Oxybutynin and Tamsulosin (3) Nutrition, metabolism, and development symptoms Status: Acute Plan: Diet: Heart healthy Fluids: PO Electrolytes: continue to monitor Prophylaxis: Zofran when necessary for nausea or vomiting, Anastacia-Colace when necessary for constipation, Tylenol when necessary for headache or fever, DuoNeb 's when necessary for shortness of breath or wheezing, clotting when necessary for BP greater than 180/100 (4) No contraindication to deep vein thrombosis (DVT) prophylaxis Status: Acute Plan: -Heparin drip order in preparation for catheterization procedure. -CHARLIE/SCDS (Zachary Schreiber MD R2) Zachary Schreiber MD R2 Aug 03, 2016 09:26 Marion Fernandes MD Aug 03, 2016 11:47
[2016-08-03] MEDS: SODIUM CHLORIDE 0.9% FLUSH 10 ML FLUSH IV FLUSH SCH (10:12)
--- NOTE | 2016-08-03 12:18 | ECHRPT ---
Indication: CVA/TIA CONCLUSIONS Normal left ventricular size. Wall thickness is measured at the upper limits of normal. The left ventricular systolic function is normal with an estimated ejection fraction in the range of 60-65%. No regional wall motion abnormalities are present. Left ventricular diastolic function parameters are normal. Structurally normal tricuspid valve. There is trace tricuspid valve regurgitation. Pulmonary arterial systolic pressure could not be kiya mated due to an insufficient tricuspid valve regurgitation doppler jet for measurement. BP: 161 / 97 HR: 47 Rhythm: Sinus MEASUREMENTS (Male / Female) Normal Values Technical Quality:Good 2D ECHO LV Diastolic Diameter PLAX 5.5 cm 4.2 - 5.9 / 3.9 - 5.3 cm LV Systolic Diameter PLAX 4.2 cm IVS Diastolic Thickness 1.1 cm 0.6 - 1.0 / 0.6 - 0.9 cm LVPW Diastolic Thickness 1.1 cm 0.6 - 1.0 / 0.6 - 0.9 cm LV Relative Wall Thickness 0.4 RV Internal Dim ED PLAX 2.4 cm LVOT Diameter 2.0 cm M-MODE Aortic Root Diameter MM 3.2 cm LA Systolic Diameter MM 4.1 cm LA Ao Ratio MM 1.3 AV Cusp Separation MM 1.9 cm DOPPLER AV Peak Velocity 129.0 cm/s AV Peak Gradient 6.7 mmHg LVOT Peak Velocity 113.0 cm/s LVOT Peak Gradient 5.1 mmHg AV Area Cont Eq pk 2.8 cm MR Peak Velocity 383.5 cm/s MR Peak Gradient 58.8 mmHg Mitral E Point Velocity 59.7 cm/s Mitral A Point Velocity 32.1 cm/s Mitral E to A Ratio 1.9 LV E' Lateral Velocity 6.0 cm/s Mitral E to LV E' Lateral Ratio 9.9 LV E' Septal Velocity 8.2 cm/s Mitral E to LV E' Septal Ratio 7.3 TR Peak Velocity 221.0 cm/s TR Peak Gradient 19.5 mmHg PV Peak Velocity 90.9 cm/s PV Peak Gradient 3.3 mmHg FINDINGS LEFT VENTRICLE Normal left ventricular size. Wall thickness is measured at the upper limits of normal. The left ventricular systolic function is normal with an estimated ejection fraction in the range of 60-65%. No regional wall motion abnormalities are present. Left ventricular diastolic function parameters are normal. RIGHT VENTRICLE Normal right ventricular size and systolic function. LEFT ATRIUM The left atrial size is normal. RIGHT ATRIUM The right atrial size is normal. ATRIAL SEPTUM Normal atrial septal thickness without atrial level shunting by limited color doppler interrogation. AORTA The aortic root and proximal ascending aorta are normal in size on limited imaging. MITRAL VALVE Structurally normal mitral valve. No mitral valve stenosis or regurgitation. AORTIC VALVE Trileaflet aortic valve. No aortic valve stenosis or regurgitation. TRICUSPID VALVE Structurally normal tricuspid valve. There is trace tricuspid valve regurgitation. Pulmonary arterial systolic pressure could not be kiya mated due to an insufficient tricuspid valve regurgitation doppler jet for measurement. PULMONARY VALVE The pulmonary valve is not well visualized. VESSELS The inferior vena cava is normal in size. PERICARDIUM No pericardial effusion. Talha Kam MD, FACC (Electronically Signed) Final Date:03 August 2016 12:17
--- NOTE | 2016-08-03 13:12 | HHI.DCPOC ---
Discharge Care Plan Diagnosis: (1) Unstable angina (2) BPH (benign prostatic hyperplasia) Goals to Promote Your Health * To prevent worsening of your condition and complications * To maintain your health at the optimal level Directions to Meet Your Goals Take your medications as prescribed Follow your dietary instruction Follow activity as directed Keep your appointments as scheduled Take your immunizations and boosters as scheduled If your symptoms worsen call your PCP, if no PCP go to Urgent Care Center or Emergency Room Smoking is Dangerous to Your Health. Avoid second hand smoke Call the 24-hour hour crisis hotline for domestic abuse at Barney Parson MD R1 Aug 03, 2016 13:11
[2016-08-03] MEDS ORDERED: ATOR40TA16 PO (13:42)
[2016-08-03] MEDS ORDERED: ASPI81CH25 CHEW (13:42)
--- NOTE | 2016-08-03 18:20 | EKG ---
Date Performed: 08/02/2016 Time Performed: 13:51:44 PTAGE: 56 years EKG: Sinus rhythm Anteroseptal ST elevation, this may be a normal variant. Clinical corralation is recommended for pos sible acute injury. Abnormal ECG NO PREVIOUS TRACING DOCTOR: Zeferino Calhoun Interpretating Date/Time 08/03/2016 18:19:13
== END 2016-08-03 14:12 | disposition home or self-care (01) | DRG 287 ==
LOC: NEPC 13:14 → NEDA 14:24 → HCIN 15:49
PROVIDERS: ADMIT Family Medicine; ATTEND Family Medicine
PROC: 4A023N7 Measurement of Cardiac Sampling and Pressure, Left Heart, Percutaneous Approach (ICD-10-PCS; principal; 2016-08-02)
PROC: B211YZZ Fluoroscopy of Multiple Coronary Arteries using Other Contrast (ICD-10-PCS; 2016-08-02)
PROC: B215YZZ Fluoroscopy of Left Heart using Other Contrast (ICD-10-PCS; 2016-08-02)
DX: I25.110 Atherosclerotic heart disease of native coronary artery with unstable angina pectoris (principal); I10 Essential (primary) hypertension; I25.2 Old myocardial infarction; E78.5 Hyperlipidemia, unspecified; F17.210 Nicotine dependence, cigarettes, uncomplicated; J45.909 Unspecified asthma, uncomplicated; N40.0 Benign prostatic hyperplasia without lower urinary tract symptoms; K21.9 Gastro-esophageal reflux disease without esophagitis
CPT/HCPCS: 71010; 80048; 80061; 80076; 82550; 82552; 83735; 83880; 84100; 84443; 84484; 85025; 85610; 85730; 93005; 93306; 93458; 99285; C1769; C1893; J1644; J2250; J3010; Q9967